=== PATIENT | male | born 1990 | race Caucasian/White ===

== ENCOUNTER 2023-08-07 16:44 | Emergency (ER) | payer OTHER, SELFPAY ==
--- NOTE | ~2023-08-07 | CT_ITS ---
CT Facial Bones and Cervical Spine Clinical Indication: Injury Technique: Contiguous axial scans were obtained through the facial bones and cervical spine followed by coronal and sagittal reconstructions. Dose reduction technique was used on this scan by utilizing automated exposure control and iterative reconstruction technique. The dose-length product (DLP) was 408.50 mGy-cm. Findings: CT facial bones: Probable acute minimally displaced left nasal bone fracture. Questionable nondisplac ed right nasal bone fracture. No other definite fracture seen.. The visualized paranasal sinuses are clear. Intraorbital soft tissues appear normal. CT cervical spine: No fractures or subluxation. Unremarkable visualized bony structures. The interv ertebral disc spaces are preserved. No prevertebral soft tissue swelling. Impression: Probable left nasal bone fracture, and questionable right nasal bone fracture, as noted above. No fracture or subluxation of the cervical spine. Reviewed, dictated and finalized at [facility]. ER Impression: Probable left nasal bone fracture, and questionable right nasal bone fracture, as noted above. No fracture or subluxation of the cervical spine.
--- NOTE | ~2023-08-07 | CT_ITS ---
Non-contrast Head CT History: Head injury Technique: Axial non-contrast imaging of the brain was performed. Dose reduction technique was used on this scan by utilizing automated exposure control and iterative reconstruction technique. The dose -length product (DLP) was 756.67 mGy-cm. Findings: There is no evidence of intracranial hemorrhage, mass lesion, or acute infarct. Brain par enchyma appears normal. The ventricles and subarachnoid spaces are normal in size. The calvarium ap pears normal. The visualized paranasal sinuses and mastoid air cells are clear. Impression: No significant abnormality seen. Reviewed, dictated and finalized at [facility]. NIGHT CAREGIVER Impression: No significant abnormality seen.
[2023-08-07 16:49] VITALS: BP 150/96; PULSE 55; RESP 18; TEMP 36; O2SAT 98
[2023-08-07 18:18] VITALS: BP 139/85; O2SAT 97
[2023-08-07 18:23] VITALS: BP 139/85; PULSE 78; RESP 18; O2SAT 98
[2023-08-07 18:46] VITALS: BP 128/91; PULSE 64; RESP 18; O2SAT 97
--- NOTE | 2023-08-07 19:36 | ED.HEATRA ---
HPI - Head Injury General Chief complaint: Head Injury Stated complaint: BARBELL VS FACE Time Seen by Provider: 08/07/23 18:24 History of Present Illness HPI Narrative: 32-year-old male reports to the emergency department for a facial injury that occurred at 2:30 p.m. today. Patient was lifting a 220 lb barbell and accidentally dropped it on his nose Will do a bench press. Patient reports pain to his nasal bridge. Denies headache or loss of consciousness, neck pain. States he had bilateral epistaxis which has since resolved. Denies a sensation of blood going down the back of his throat, vision changes, focal numbness or weakness. Related Data Home Medications Medication Instructions Recorded Confirmed No Home Medications 03/05/23 08/07/23 Allergies Allergy/AdvReac Type Severity Reaction Status Date / Time No Known Allergies Allergy Verified 08/07/23 18:26 Review of Systems Review of Systems: CONSTITUTIONAL: Denies fever, chills, or sweats. EYES: Denies visual changes, redness, or discharge. ENT: See HPI CARDIOVASCULAR: Denies chest pain, palpitations, or edema. RESPIRATORY: Denies cough or dyspnea. GASTROINTESTINAL: Denies abdominal pain, nausea, vomiting, or diarrhea. GENITOURINARY: Denies dysuria or hematuria. SKIN: Denies rash or itching. MUSCULOSKELETAL: Denies back pain, joint pain, or myalgia. NEUROLOGIC: Denies headache, numbness, or weakness. PSYCHIATRIC: Denies anxiety or depression. [facility] Surgical History Surgical History [place] teeth extracted (~2014) Family History Family History Father Diabetes mellitus Hypertension Depression Mother Depression Thyroid disease Eating disorder Sibling Asthma Depression Grandparent Diabetes mellitus Hypertension Lung cancer grandfather was a heavy smoker Schizophrenia Other No family history of cardiovascular disease Social History Social History Smoking status: Never smoker Alcohol intake: never Substance use: never Substance use type: does not use Lack of Transportation: No Lack of Food: Never True Current Housing: I Have Housing Concerned About Future Housing: No Difficulty Paying Gas/Electric Bills: No Difficulty Paying for Meds: No Currently Unemployed: No Education: Master's Degree or Higher Difficulty w/ Childcare or Family Care: No Living arrangements: with family Occupation/Education: occupation Gender identity (if verbalized by the patient): Male Sexual Orientation (if Verbalized by the Patient): Straight or Heterosexual Agree to blood products: Yes Exam Narrative: GENERAL: Well-appearing, well-nourished, and in no acute distress. HEAD: Normocephalic, atraumatic. EYES: PERRLA and EOMI. ENT: Dried blood bilateral in bilateral nares. Edema to the nasal bridge extending into the left orbit With tenderness. No hemotympanum bilaterally. No tenderness remainder of orbits or facial bones. No overlying lacerations or abrasions. NECK: No midline cervical spinous tenderness, step-offs or deformities. CHEST: Clear to auscultation. No respiratory distress. HEART: Regular rate and rhythm. No murmur heard. Normal peripheral pulses. ABDOMEN: Soft, nontender, nondistended, normal active bowel sounds. EXTREMITIES: Normal range of motion. No edema. SKIN: Warm, dry, no rash. NEURO: No focal deficits. Alert and oriented x3. Cranial nerves 2-12 intact. Strength 5/5 in BUE and BLE. Sensation intact throughout. Normal pybzbr-xn-nugm. No pronator drift. Course Vital Signs Vital signs: Vital Signs Temperature 96.8 F L 08/07/23 16:49 Pulse Rate 55 L 08/07/23 16:49 Respiratory Rate 18 08/07/23 16:49 Blood Pressure 150/96 H 08/07/23 16:49 Pulse Oximetry 98 08/07/23 16:49 Temperatu
--- NOTE | 2023-08-07 19:36 | PC.NURSE ---
this rn assumed care of patient. this rn took patient report from alonso cummins.
== END 2023-08-07 20:31 | disposition home or self-care (01) ==
PROVIDERS: Emergency Provider Physician Assistant; PCP Family Medicine
DX: S02.2XXA Fracture of nasal bones, initial encounter for closed fracture (principal); W20.8XXA Other cause of strike by thrown, projected or falling object, initial encounter; Y93.B3 Activity, free weights
CPT/HCPCS: 70450; 70486; 72125; 99284; A9270

== ENCOUNTER 2024-07-12 21:37 | Emergency (ER) | payer OTHER, SELFPAY ==
--- NOTE | ~2024-07-12 | XR_ITS ---
EXAMINATION: XR chest 1V portable 07/12/2024 22:04 INDICATION: Syncope PROCEDURE: AP portable chest COMPARISON: No prior studies for comparison. FINDINGS: The lungs are clear. The cardiomediastinal silhouette is within normal limits. There are no pleural effusions. There is no pneumothorax suspected. IMPRESSION: 1: NO ACUTE CARDIOPULMONARY DISEASE. Reviewed, dictated and finalized at location A. SWORD PUZZLE MAKER
[2024-07-12 21:37] VITALS: BP 124/72; PULSE 82; RESP 24; TEMP 36.4; O2SAT 98
--- NOTE | 2024-07-12 21:48 | ECG_ITS ---
Test Date: 2024-07-12 21:50:19 Measurements Intervals [place] Rate: 87 P: 53 OR: 181 QRS: 83 QRSD: 99 T: -18 QT: 363 QTc: 439 Interpretive Statements SINUS RHYTHM MINIMAL VOLTAGE CRITERIA FOR LVH, CONSIDER NORMAL VARIANT [MEETS CRITERIA IN ONE OF: R(aVL), S(V1), R(V5), R(V5/V6)+S(V1)] NONSPECIFIC T-WAVE ABNORMALITY No previous ECG available for comparison Electronically Signed On 07-13-2024 09:20:29 HEAD SHIPPER by Claudio Camilo M.D.
[2024-07-12 22:31] LABS: Basophils Percent Auto 0.2 % (0.2-1.2); Eosinophils Percent Auto 0.2 % (0-4.4); Hematocrit 48.7 % (42.0-52.0); Immature Granulocyte Absolute 0.04 K/mm3 (0.00-0.031); Immature Granulocyte Percent A 0.3 % (0-0.5); Lymphocytes Absolute Auto 0.33 K/mm3 (0.9-3.2); Lymphocytes Percent Auto 2.5 % (18.3-44.2); Mean Corpuscular HGB Conc 34.9 g/dl (32-36); Mean Corpuscular Hemoglobin 31.7 pg (26-34); Mean Corpuscular Volume 90.7 fl (80-100); Mean Platelet Volume 8.9 fl (7.4-10.4); Monocytes Absolute Auto 0.7 K/mm3 (0.1-0.6); Monocytes Percent Auto 5.1 % (2.6-8.5); Neutrophils Percent Auto 91.7 % (45.5-73.1); Platelet Count Result 226 k/mm3 (150-375); Red Blood Count 5.37 M/mm3 (4.6-6.20); Red Cell Distribution Width 12.2 % (11.5-14.5); White Blood Count 13.1 K/mm3 (4.5-10.0)
--- NOTE | 2024-07-12 22:39 | ED.GENADULT ---
HPI - General Adult General Chief complaint: Syncope Stated complaint: N/V/D; SYNCOPE Time Seen by Provider: 07/12/24 21:53 History of Present Illness HPI narrative: This is a 33-year-old male presenting ED with chief complaint of syncope. Patient and his family have been suffering from gastroenteritis for the last several days. Patient has been having multiple episodes of nausea and vomiting this afternoon has not been able to keep anything down. Several hours prior to arrival he had an episode of vomiting and then passed out. He then quickly regained consciousness. 911 was called and originally he was not going to come to the ED, but then had another episode of vomiting that resulted in a syncopal event. Syncopal events have a prodrome with a darkening of his vision. Patient has a history of vasovagal syncope that occurs while weightlifting. Patient does not have any chest pain difficulty breathing or abdominal pain. Related Data Allergies Allergy/AdvReac Type Severity Reaction Status Date / Time No Known Allergies Allergy Verified 04/20/24 10:33 [facility] Past Medical History Medical History Hx of fracture of nose (~07/2023) Dyslipidemia Low testosterone in male Surgical History Surgical History [place] teeth extracted (~2014) Family History Family History Father Diabetes mellitus Hypertension Depression Mother Depression Thyroid disease Eating disorder Sibling Asthma Depression Grandparent Diabetes mellitus Hypertension Lung cancer grandfather was a heavy smoker Schizophrenia Other No family history of cardiovascular disease Social History Social History Smoking status: Never smoker Alcohol intake: never Substance use: never Substance use type: does not use Lack of Transportation: No Lack of Food: Never True Current Housing: I Have Housing Concerned About Future Housing: No Difficulty Paying Gas/Electric Bills: No Difficulty Paying for Meds: No Currently Unemployed: No Education: Master's Degree or Higher Difficulty w/ Childcare or Family Care: No Living arrangements: with family Occupation/Education: occupation Gender identity (if verbalized by the patient): Male Sexual Orientation (if Verbalized by the Patient): Straight or Heterosexual Agree to blood products: Yes Exam Narrative: APPEARANCE: No apparent distress. Heavy musculature Head: atraumatic. EYES: EOMI, NOSE: Atraumatic NECK: Trachea midline RESPIRATORY: No increased rate of breathing clear to auscultation CARDIOVASCULAR: RRR, no peripheral edema ABDOMINAL: Non-distended soft nontender MUSCULOSKELETAl: No obvious deformities NEURO: Alert. Moving 4/4 extremities SKIN:: Warm, dry. Normal color PSYCHIATRIC: Normal affect Course Vital Signs Vital signs: Vital Signs Temperature 97.6 F 07/12/24 21:37 Pulse Rate 82 07/12/24 21:37 Respiratory Rate 24 H 07/12/24 21:37 Blood Pressure 124/72 07/12/24 21:37 Pulse Oximetry 98 07/12/24 21:37 Oxygen Delivery Room Air 07/12/24 21:37 Temperature 97.6 F 07/12/24 21:37 Pulse Rate 89 07/12/24 22:54 Respiratory Rate 16 07/12/24 22:54 Blood Pressure 126/73 07/12/24 22:54 Pulse Oximetry 98 07/12/24 22:54 Oxygen Delivery Room Air 07/12/24 21:37 Medical Decision Making [facility] Narrative Medical decision making narrative: -Course: 33-year-old male presenting multiple episodes of nausea diarrhea. He then developed syncope want vomiting. EKG without concerning findings like hocm/bruggada/long qt etc. Laboratory studies within normal limits. Patient given 3 L of saline and Zofran is now tolerating p.o.. Syncope likely a result of dehydration and vasovagal. Patient be discharged with antiemetics instructions to drink plenty of fluids. -DDX includes but is not limited to: Gastroenteritis, dehydration, vasovagal syncope, cardiac syncope, orthostatic syncope -Co-morbidities complicating care: History of vasovagal syncope, low TSH -Independent interpretation of studies: Independent EKG interpretation: Rhythm [sinus], Rate [87], [place] -[normal], SD -[normal], QRS [narrow], QTC [normal], T waves -[negative for concerning inversions], ST Segments - [Negative for concerning elevations] Final interpretations: [Normal Sinus Rhythm] -Interventions: 3 L NS, Zofran -Shared decision making / Disposition: discharged -RX Zofran Vital Signs Vital Signs: Vital Signs Temperature 97.6 F 07/12/24 21:37 Pulse Rate 82 07/12/24 21:37 Respiratory Rate 24 H 07/12/24 21:37 Blood Pressure 124/72 07/12/24 21:37 Pulse Oximetry 98 07/12/24 21:37 Oxygen Delivery Room Air 07/12/24 21:37 Temperature 97.6 F 07/12/24 21:37 Pulse Rate 89 07/12/24 22:54 Respiratory Rate 16 07/12/24 22:54 Blood Pressure 126/73 07/12/24 22:54 Pulse Oximetry 98 07/12/24 22:54 Oxygen Delivery Room Air 07/12/24 21:37 Lab Data 07/12/24 22:01 07/12/24 22:01 Labs: Lab Results 07/12/24 07/12/24 Range/Units 22:01 22:25 WBC 13.1 H (4.5-10.0) K/mm3 RBC 5.37 (4.6-6.20) M/mm3 Hgb 17.0 (14.0-18.0) g/dL Hct 48.7 (42.0-52.0) % MCV 90.7 (80-100) fl MCH 31.7 (26-34) pg MCHC 34.9 (32-36) g/dl RDW 12.2 (11.5-14.5) % Plt Count 226 (150-375) k/mm3 MPV 8.9 (7.4-10.4) fl Immature Gran % (Auto) 0.3 (0-0.5) % Neut % (Auto) 91.7 H (45.5-73.1) % Lymph % (Auto) 2.5 L (18.3-44.2) % [place] % (Auto) 5.1 (2.6-8.5) % Eos % (Auto) 0.2 (0-4.4) % Baso % (Auto) 0.2 (0.2-1.2) % Lymph # (Auto) 0.33 L (0.9-3.2) K/mm3 [place] # (Auto) 0.7 H (0.1-0.6) K/mm3 Eos # (Auto) 0.0 (0-0.3) K/mm3 Baso # (Auto) 0.0 (0.0-0.1) K/mm3 Abs Immat Gran (auto) 0.04 H (0.00-0.031) K/mm3 Absolute Neuts (auto) 12.0 H (1.3-6.7) K/mm3 Absolute Nucleated RBC 0.000 (0.0-0.012) K/mm3 Nucleated RBC % 0.0 (0.0-0.2) % Sodium 137 (137-145) mmol/L Potassium 3.6 (3.4-5.0) mmol/L Chloride 102 (98-107) mmol/L Carbon Dioxide 27 (22-30) mmol/L Anion Gap 8 (4-12) mmol/L BUN 21 H (9-20) mg/dL Creatinine 1.22 (0.7-1.3) mg/dL Estim Creat Clear Calc 100 ml/min Estimated GFR > 60 (59 - ) Glucose 108 (65-110) mg/dL Calcium 8.4 (8.4-10.2) mg/dL Total Bilirubin 0.9 (0.2-1.3) mg/dL AST 56 (17-59) U/L ALT 47 (6-50) U/L Alkaline Phosphatase 46 (38-126) U/L Total Protein 7.0 (6.3-8.2) g/dL Albumin 4.4 (3.5-5.1) g/dL Influenza A (RT-PCR) Negative (Negative) Influenza B (RT-PCR) Negative (Negative) RSV (RT-PCR) Negative (Negative) SARS-CoV-2 RNA (RT-PCR) Negative (Negative) Discharge Plan Discharge Clinical Impression: Syncope, vasovagal, Acute dehydration Patient Disposition: Home, Self-Care Condition: Stable Instructions: Antibiotic Form, Syncope (DC), Gastroenteritis (DC) Additional Instructions: You were seen in the emergency department after syncopal event. This is likely a combination of dehydration and vasovagal syncope. Please make sure you are drinking plenty of fluids and use Zofran for nausea. Please follow-up with your primary care physician further. You return to ED at any time if you develop recurrent syncope, chest pain difficulty breathing would like re-evaluation Patient Language: Turkmen Prescriptions: New ondansetron 4 mg tablet,disintegrating 4 mg PO Q8H PRN (Reason: nausea and vomiting) Qty: 30 0RF No Action omega 4-cnw-ccg-fish oil [Fish Oil] 1,000 mg (120 mg-180 mg) capsule 1 cap PO DAILY Qty: 90 0RF magnesium oxide 400 mg magnesium tablet 400 mg PO DAILY Qty: 1 0RF cholecalciferol (vitamin D3) 125 mcg (5,000 unit) capsule 125 mcg PO DAILY Qty: 1 0RF testosterone enanthate 75 mg/0.5 mL auto-injector 105 mg subcut .twice a week Qty: 2 0RF Follow-up/Referrals: Bisi Alexander DO [Primary Care Provider] -
[2024-07-12 22:44] LABS: Alanine Aminotransferase 47 U/L (6-50); Albumin Level 4.4 g/dL (3.5-5.1); Alkaline Phosphatase 46 U/L (38-126); Anion Gap 8 mmol/L (4-12); Aspartate Amino Transferase 56 U/L (17-59); Bilirubin,Total 0.9 mg/dL (0.2-1.3); Blood Urea Nitrogen 21 mg/dL (9-20); Calcium 8.4 mg/dL (8.4-10.2); Carbon Dioxide 27 mmol/L (22-30); Chloride 102 mmol/L (98-107); Estimated CRCL calculation 100 ml/min; Estimated Glomerular Filt Rate > 60; Glucose 108 mg/dL (65-110); Potassium 3.6 mmol/L (3.4-5.0); Sodium 137 mmol/L (137-145)
[2024-07-12 22:54] VITALS: BP 126/73; PULSE 89; RESP 16; O2SAT 98
[2024-07-12] MEDS: SODIUM CHLORIDE 0.9% IV 3,000 ML 999 ML IV CONT (22:55)
[2024-07-12 23:07] LABS: Influenza A QL RT-PCR Negative (Negative); Influenza B QL RT-PCR Negative (Negative); RSV RNA, RT-PCR Negative (Negative); SARS-CoV-2 RNA PCR Negative (Negative)
[2024-07-12] MEDS: ONDANSETRON INJ 4 MG/2 ML VIAL IV PUSH (23:45)
--- NOTE | 2024-07-13 00:14 | PC.NURSE ---
Pt ambulated w steady gait around nurses station.
[2024-07-13 00:25] VITALS: BP 118/70; PULSE 87; RESP 16; O2SAT 100
== END 2024-07-13 00:28 | disposition home or self-care (01) ==
PROVIDERS: Emergency Provider Emergency Medicine; PCP Family Medicine
DX: R55 Syncope and collapse (principal); E86.0 Dehydration; Z20.828 Contact with and (suspected) exposure to other viral communicable diseases; E78.5 Hyperlipidemia, unspecified; R94.31 Abnormal electrocardiogram [ECG] [EKG]
CPT/HCPCS: 36415; 71045; 80053; 85025; 87637; 93005; 96361; 96374; 99284; J2405; J7030

== ENCOUNTER 2025-04-18 09:04 | Outpatient (CLI) | payer OTHER, SELFPAY ==
--- OUTSIDE RECORDS SUMMARY | 2025-04-18 10:06 | XMS_ITS | Clinical Summary ---
Author Organization [facility] Address [address] [place] [address] Care Team Providers Care Rn Visiting Name Role Phone Chase Valdes MD Primary Care Provider [phone] Source Comments [facility],non-owned Affiliates and Associated Physician Practices is amultiple site organization consisting of ambulatory clinics and hospital sitesin [place], [place], [place] and [place]. This disclosure is being madepursuant to the Care Everywhere program and may not contain all information available regarding this patient. Last updated 18.[employer] [facility] Allergies No known active allergies Medications * Be aware that medications may not be up to date on this document. Alwaysverify current medications with the patient. No known medications Social History Tobacco Use Types Packs/Day Years Used Date Smoking Tobacco: Never Smokeless Tobacco: Never Sex and Gender Information Value Date Recorded Sex Assigned at Not on file Legal Sex Male 10:08 AM CDT Gender Identity Not on file Sexual Orientation Not on file Last Filed Vital Signs Vital Sign Reading Time Taken Comments Blood Pressure 122/80 02/15/2021 3:50 PM CDT Pulse 82 02/15/2021 3:50 PM CDT Temperature 37 C (98.6 F) 02/15/2021 3:50 PM CDT Respiratory Rate 20 02/15/2021 3:50 PM CDT Oxygen Saturation 97% 05/26/2020 12:42 PM POLLUTION CONTROL TECHNICIAN Inhaled Oxygen Concentration - - Weight 101.6 kg (224 lb) 02/15/2021 3:50 PM CDT Height 180.3 cm (5' 11) 02/15/2021 3:50 PM CDT Body Mass Index 31.24 02/15/2021 3:50 PM CDT Plan of Treatment Health Maintenance Due Date Last Done Comments HIV SCREENING 12/25/2007 HEPATITIS C SCREENING 12/20/2010 DTAP/TDAP/TD VACCINES (1 - Tdap) 12/25/2011 HEPATITIS B VACCINE (1 of 3 - 19+ 3-dose series) 12/25/2011 HPV VACCINE (1 - 3-dose SCDM series) 12/25/2019 DEPRESSION SCREENING 06/28/2024 COVID-19 VACCINE (1 - 2023-2 5 season) 2025 INFLUENZA VACCINE (#1) 2025 ZOSTER VACCINE (1 of 2) 2042 HIB VACCINE Aged Out No longer eligi ble based on patient's age to complete this topic MENINGOCOCCAL (Group B) VACC INE SHARED DECISION-MAKING Aged Out No longer eligibl e based on patient's age to complete this topic MENINGOCOCCAL GROUPS A/C/Y/W VACCINE Aged Out No longer eligible b ased on patient's age to complete this topic PNEUMOCOCCAL VACCINE Aged Out No long er eligible based on patient's age to complete this topic Insurance [facility] Care Teams Rn Visiting Relationship Specialty Start Date End Date Chase Valdes MD [address] [place] [address] PCP - General Family Medicine 10/02/16
--- OUTSIDE RECORDS SUMMARY | 2025-04-18 10:06 | XMS_ITS | Clinical Summary ---
Author Organization [facility] [place] [address] Address [address] [place] [id number] Care Team Providers Care [employer] Nursery Worker Name Role Phone Bisi Alexander DO Primary Care Provider [phone]- [phone] Allergies No known active allergies Medications fluticasone propionate (FLONASE) 50 mcg/actuation nasal sprayIndication s:Chronic Non-Allergic Rhinitis Administer 1 spray into each nostril daily Pt stopped taking d/t heart palpitations Active testosterone cypionate (DEPO-TESTOTERO NE) 200 mg/mL injectionIndica tions:HRT Inject 1.05 mL (210 mg total) into the muscle as instructed as directed 0.3 ml every 3 days Active HYDROcodone-any taminophen (NORCO) 5-325 mg per tabletIndicatio ns:Pain Take 1 tablet by mouth every 6 (six) hours as needed for pain for up to 15 doses 15 tablet Active Active Problems Problem Noted Date Diagnosed Date Deviated septum 09/25/2024 Nasal turbinate hypertrophy 09/25/2024 Acquired nose deformity 09/25/2024 Encounters Date Type Department Care Team Description 03/20/2025 8:20 AM CDT Office Visit [facility] Medicine ENT [address] [place] [address] Office Building [address] [phone] Daniele Streeter MD Nasal obstruction (Primary Dx) 02/15/2025 8:40 AM CDT Office Visit [facility] Medicine ENT [address] [place] [address] Office Building [address] [phone] Randa Cárdenas MD Nasal obstruction (Primary Dx) 02/09/2025 11:15 AM CDT - 02/09/2025 2:30 PM CDT Surgery [facility] Operating Room [address] [facility] [phone] Daniele Streeter MD RHINOPLASTY. 02/09/2025 11:13 AM CDT Anesthesia Event [facility] Operating Room [address] [facility] [place] [phone] Gabe Sequeira MD Heuvelman, Katherine Marie, NP 02/09/2025 9:59 AM CDT - 02/09/2025 4:20 PM CDT Hospital Encounter [facility] Operating [facility] [address] [facility] [place] [phone] Daniele Streeter MD Acquired nose deformity [M95.0] (Primary Dx); Deviated septum [J34.2]; Nasal turbinate hypertrophy [J34.3] Discharge Disposition: Discharge to home or self care 02/08/2025 Telephone [facility] Otolaryngology [address] [place] [id number] Shannan Reddy MS from Last 3 Months Surgical History Surgery Date Site/Laterality Comments ARM SURGERY 06/28/2005 - 06/27/2006 RHINOPLASTY 02/09/2025 Nose/N/A Procedure: RHINOPLASTY.; Surgeon: Daniele Streeter MD; Location: [facility] OPERATING ROOM; Service: Otolaryngology; Laterality: N/A; TURBINATE RESECTION 02/09/2025 Nose/Bilateral Procedure: REDUCTION INFERIOR TURBINATE.; Surgeon: Daniele Streeter MD; Location: [facility] OPERATING ROOM; Service: Otolaryngology; Laterality: Bilateral; Medical History Medical History Date Comments Delayed emergence from general anesthesia Hypertension Family History Medical History Relation Name Comments Anesthesia problems Neg Hx Social History Tobacco Use Types Packs/Day Years Used Date Smoking Tobacco: Never Passive Smoke Exposure: Never Smokeless Tobacco: Never Tobacco Cessation:Counseling Given: Not Answered Alcohol Use Standard Drinks/Week Comments Never 0 (1 standard drink = 0.6 oz pur e alcohol) AUDIT-C Answer Date Recorded Q1: How often do you have a drink containing alcohol? Never 02/09/2025 Q2: How many drinks containi ng alcohol do you have on a typical day when you are drinking? Patient does not drink Q3: How often do you have si x or more drinks on one occasion? Never 02/09/2025 Personal Safety Answer Date Recorded Have you ever been in or are you currently in a harmful physical or emotional relationship or is someone making you feel afraid or unsafe? Denies 02/09/2025 Sex and Gender Information Value Date Recorded Sex Assigned at Not on file Legal Sex Male 8:55 AM CDT Gender Identity Not on file Sexual Orientation Not on file Obstetrics History Last Filed Vital Signs Vital Sign Reading Time Taken Comments Blood Pressure 158/90 02/09/2025 4:05 PM CDT Pulse 88 02/09/2025 4:05 PM CDT Temperature 36.6 C (97.9 F) 02/09/2025 2:34 PM CDT Respiratory Rate 18 02/09/2025 4:05 PM CDT Oxygen Saturation 93% 02/09/2025 4:05 PM CDT Inhaled Oxygen Concentration - - Weight 119.2 kg (262 lb 11.2 oz) 2024 10:20 AM CDT Height 177.8 cm (5' 10) 02/09/2025 10: 20 AM CDT Body Mass Index 37.69 02/09/2025 10:20 AM CDT Plan of Treatment Health Maintenance Due Date Last Done Comments Depression Screening 1992 Hepatitis C Screening 1992 DTaP/Tdap/Td Vaccine (1 - Tdap) 12/25/2003 Varicella Vaccines (1 of 2 - 13+ 2-dose series) 2005 Hepatitis B Screening 2010 Regular Well Visit/Exam 18-64 2010 HPV Vaccines (1 - 3-dose SCD M series) 12/25/2019 Influenza Vaccine (#1) 2025 Pneumococcal vaccine <65 Aged Out No longer eligible based on patient's age to complete this topic Procedures Procedure Name Priority Date/Time Associated Diagnosis Comments AR AN PROCEDURE PLACEHOLDER Routine 02/09/2025 11:37 AM CDT AR AN ELECTIVE ENDOTRACHEAL AIRWAY Routine 02/09/2025 11:37 AM CDT AR SUBMUCOUS RESCJ INFERIOR TURBINATE PRTL/COMPL 02/09/2025 11:17 AM CDT Deviated septum Nasal turbinate hypertrophy Acquired nose deformity RHINOPLASTY. 02/09/2025 11:17 AM CDT Deviated septum Nasal turbinate hypertrophy Acquired nose deformity from Last 3 Months Results * AR AN ELECTIVE ENDOTRACHEAL AIRWAY, AR AN PROCEDURE PLACEHOLDER (02/09/2025 11:37 AM CDT) Narrative Elia Garcia CRNA - 02/09/2025 11:37 AM CDT Elia Garcia CRNA 02/09/2025 11:38 AM Airway Patient location: OR Urgency: elective Date/time: 02/09/2025 11:24 AM Indications for airway management: anesthesia Difficult airway: no Staff: Supervising provider: Gabe Sequeira MD Placed by: NUCLEAR MEDICINE CHIEF TECHNOLOGIST: Eila Garcia CRNA Emergent airway documentation: Risks and benefits discussed: yes Consent obtained: yes Consent given by: patient Airway prep: Preoxygenated: yes Patient position: sniffing Mask difficulty assessment: 0 - not attempted Spontaneous ventilation during airway: absent Sedation level during airway: GA Final airway details: Final airway type: endotracheal airway Tube type: MILTON tube ETT size: 7.5 mm Cuffed: yes Technique used for successful ETT placement: direct laryngoscopy Insertion site: oral Blade type: Zulema Blade size: 4 Cormack-Lehane (direct): grade I - full view of glottis Cuff volume: 7 mL Cuff inflated with: air ETT to lips: 24 cm Placement verified by: auscultation and CO2 detection Airway secured with: silk tape Number of attempts: 1 Gabe Sequeira MD ANESTHESIA ORDERABLES Fin al Result from Last 3 Months Insurance EMPLOYEES Member Subscriber Plan / Payer (Ef fective 2022-) Name:Stephen Schuster Relation to Subscriber:Spouse Name:IRISSERA Leroy Date of :1995 (Home) Address: [address] [place] [address] Payer ID:[id number] (NAIC) Type:[facility] HMO/PPO Address: [place] [phone] EMPLOYEES EMPLOYEES Care Teams Forest Nursery Worker Relationship Specialty Start Date End Date Bisi Alexander DO PCP - General Family Medicine 02/09/25
[2025-05-09 12:06] VITALS: BMI 36.6
--- NOTE | 2025-05-09 12:06 | P.SLEEP_ITS ---
Sleep Study - Home Unattended Date of Study: 04/18/25 Ordering Provider: Marquita Darden APRN Interpreting Provider: Flor Davison, DO Home Sleep Study Type: Watch PAT Height: 1.78 m Weight: 115.666 kg Body Mass Index: 36.6 Neck Circumference (inches): 17.5 [place]: 17 Reason for Sleep Study Excessive daytime sleepiness Sleep History The patient is a 34-year-old male that had a sleep study ordered by his primary care for evaluation of sleep apnea. The patient rarely awakens from sleep short of breath. He denies awakening at night with heartburn, belching or cough. He frequently snores and is occasionally loud enough that others complain. He frequently has trouble sleeping when he has a cold. He occasionally wakes up gasping for air throughout the night. He occasionally has breathing problems at night observed by himself or others. He denies sweating excessively at night. He occasionally has heart palpitations or irregular heartbeats during the night. he occasionally falls asleep during the day but never while driving. He denies sleep paralysis and cataplexy. He occasionally has trouble at school or work due to sleepiness. He rarely experiences vivid dreamlike scenes upon awakening or falling asleep. He denies feeling afraid of going to sleep. He denies having nightmares. He rarely has thoughts racing through his mind. He occasionally feels sad, depressed and anxious. He constantly has muscular tension. He occasionally notices parts of his body jerk. He frequently has crawling and aching feelings in his legs but denies having leg pain during the night. He occasionally grinds his teeth during sleep but never awakens with morning jaw pain. He is occasionally bothered by pain during the day but rarely awakened by pain during the night. He frequently wakes up feeling stiff in the morning. He frequently wakes up with sore or achy muscles. He occasionally wakes up pain in the neck, spine and joints. He goes to bed at midnight on weekdays and at 9:00 p.m. on the weekends. It takes him 5-10 minutes to fall asleep. He wakes up 2-6 times throughout the night for unknown reasons and he can fall back asleep within a minute. He wakes up at 8:00 a.m. on weekdays and 5:00 a.m. on the weekends. He typically gets 6- 7 hours of sleep per night. He will stay in bed for up to 20 minutes after waking up the morning. He currently lives with his and 2 children. He denies consuming any caffeinated beverages within 2 hours of bedtime. He denies engaging in physical exercise before bedtime. He will watch television before falling asleep. He denies taking naps in afternoon or the evening. He consumes 1 caffeinated beverage per day. He denies tobacco, alcohol and recreational drug use. [facility] Past Medical History Medical History Hx of fracture of nose (~07/2023) Dyslipidemia Low testosterone in male Surgical History Surgical History History of rhinoplasty (01/2025) [place] teeth extracted (~2014) Family History Family History Father Diabetes mellitus Hypertension Depression Mother Depression Thyroid disease Eating disorder Sibling Asthma Depression Grandparent Diabetes mellitus Hypertension Lung cancer grandfather was a heavy smoker Schizophrenia Other No family history of cardiovascular disease Social History Social History Smoking status: Never smoker Alcohol intake: never Substance use: never Substance use type: does not use Lack of Transportation: No Lack of Food: Never True Current Housing: I Have Housing Concerned About Future Housing: No Difficulty Paying Gas/Electric Bills: No Difficulty Paying for Meds: No Currently Unemployed: No Education: Master's Degree or Higher Difficulty w/ Childcare or Family Care: No Living arrangements: with family Occupation/Education: occupation Gender identity (if verbalized by the patient): Male Sexual Orientation (if Verbalized by the Patient): Straight or Heterosexual Agree to blood products: Yes Medications Home Medications ?Medication ?Instructions ?Recorded ?Confirmed ?Type cholecalciferol (vitamin D3) 125 125 mcg PO DAILY #1 c ap 03/10/24 03/26/25 Rx mcg (5,000 unit) capsule magnesium oxide 400 mg PO DAILY #1 tablet 03/26/25 Rx omega 8-lhz-nyk-fish oil 1,000 mg 1 cap PO DAILY #90 c aps 03/10/24 03/26/25 Rx (120 mg-180 mg) capsule (Fish Oil) testosterone enanthate 75 mg/0.5 105 mg (0.7 mL) subcu t .twice a 03/10/24 03/26/25 Rx mL subcutaneous auto-injector week #2 mL Sleep Procedure The sleep study was completed using Fundamo (Proprietary)PAT a technically adequate device with seven channels: peripheral arterial tone, actigraphy, body position, snore, respiratory movement, pulse oximetry, sleep staging, and heart rate. Prior to using the device, the patient received verbal and written instructions for its application and was provided with the help desk phone number for additional telephonic instruction with 24-hour availability of qualified personnel to answer questions. The study was scored using [facility] guidelines. Sleep Architecture The total recording time is 8 hrs, 25 min. The total sleep time is 7 hrs, 13 min. Sleep latency is 19 minutes. REM latency is 82 minutes. The patient had 9 episodes of waking. Sleep architecture shows 24.5% deep sleep, 43.1% light sleep, and (as % Total Sleep Time) showed NREM (Light 43.1%; Deep 24.5%), and a 32.4% stage REM. The patient spent 62.7% of total sleep time in the supine position. Sleep efficiency was 85.74. Respiratory Analysis The overall AHI (pAHI 4%:) is 7.7. The overall AHI (pAHI 3%:) is 13.1. The central AHI is 2.5. The AHI was 7.2 in NREM and 25.6 in REM sleep. The AHI was 17.2 in Supine and 6.3 in Non-supine sleep. Percent of Jeovany Herring respirations is 0.0. Oximetry Data The oxygen desaturation index (BACILIO 4%:) is 4.1. The mean saturation is 94%, and the lowest saturation is 89%. Time spent with saturation < 88% is 0.0 minutes. Snoring Profile Snoring average intensity is 40 dB. The patient snored above 45 decibels for 5.4 minutes, 1.2% of sleep time. Cardiac Profile The average pulse rate is 62 beats per minutes. The lowest pulse rate is 48 bpm. The highest pulse rate reported is 105 bpm. Atrial fibrillation was not detected. Premature beats occur <0.1 per minute. Assessment and Plan Assessment and Plan (1) ALVIN (obstructive sleep apnea): Code(s): G47.33 - Obstructive sleep apnea (adult) (pediatric) Status: Acute Assessment and Plan: The patient had an overall AHI of 7.7 with desaturation down to 89%. This is consistent with mild sleep apnea. Due to the patient's excessive daytime sleepiness (ESS of 17/24), he qualifies for treatment. I recommend that the patient be prescribed AutoPAP 5-15 cm H2O, CPAP mask/filters/tubing and heated humidity. A mandibular advancement device is also an acceptable treatment option. This should be used with all episodes of sleep.? Compliance should be reviewed w bogdan 31-90 days of starting therapy for usage greater than 4 hours per night greater than 70% of the nights. The patient should be asked about symptoms such as?excessive daytime sleepiness, quality of sleep, decreased nocturia, increased?mental functioning such as memory, mood, and concentration. The patient's sleep history is suggestive of Restless Leg Syndrome. I recommend that the patient have a serum ferritin drawn for evaluation of iron deficiency anemia. If the patient has a serum ferritin less than 75 ng/mL, I recommend starting a daily iron supplement and a Vitamin C supplement for better absorption. If the serum ferritin is greater than 75 ng/mL, I recommend starting a dopamine agonist and titrating the dose until symptoms resolve. There are nonpharmacological methods to treat limb movements including daily exercise, stretching calf muscles before bed, avoiding excessive amounts of caffeine and alcohol, vitamin B supplementation, magnesium lotion massaged into legs before bed, and use of a weighted blanket. Data The data obtained during this sleep study is adequate for interpretation. Certification This sleep study has been reviewed by a board certified sleep medicine physician.
== END 2025-04-19 22:17 | disposition home or self-care (01) ==
PROVIDERS: PCP Family Medicine; Visit Provider Nurse Practitioner Family
DX: G47.8 Other sleep disorders (principal); G47.33 Obstructive sleep apnea (adult) (pediatric)
CPT/HCPCS: 95800